=== PATIENT | female | born 1985 | race Caucasian/White ===

== ENCOUNTER 2018-01-06 17:02 | Emergency (ER) | payer OTHER ==
[2018-01-06] MEDS ORDERED: SODIUM CHLORIDE 0.9% 1,000 ML IV ONE (18:16)
--- NOTE | 2018-01-06 18:16 | ED ---
Female Urogenital HPI - General Source: patient, RN notes reviewed Mode of arrival: ambulatory Limitations: no limitations <Imelda Montoya - Last Filed: 01/06/18 20:16> <Vaughn Jones - Last Filed: 01/06/18 21:59> - General Chief complaint: Vaginal Bleeding Stated complaint: Female Time Seen by Provider: 01/06/18 17:58 - History of Present Illness Initial comments: This is a 32-year-old female who presents to the ED with CC of vaginal bleeding. Patient states that she has been having heavy bleeding for 12 days. She reports passing large clots, the size of quarters, for 3 days. She states she has bled through 21 tampons in the past 3 days. She states that she has never been sexually active so denies chance of STD or . She states that she sees Dr. Lyn, OB-[facility]MITTING OFFICER. She was taking supplemental estrogen and he recommended that she discontinue this. One week after discontinuing, she began to bleed. She last saw Dr. Lyn on December 22 and had her first pelvic exam. She states that it was normal. She reports a history of vaginal bleeding for 10 months last year but that it was not this heavy. She states that she has been feeling tired and lightheaded when she closes her eyes. Patient states that she did have an appointment for an ultrasound this evening at 6 PM but missed it to be evaluated here in the ED. She denies fevers or chills, chest pain or shortness of breath, abdominal pain, nausea or vomiting, dysuria or hematuria. (Imelda Montoya) - Related Data Previous Rx's Medication Instructions Recorded HYDROcodone/APAP 5-325MG [[place] 5] 1 each PO Q4HR PRN #10 tab 01/06/18 Allergies Allergy/AdvReac Type Severity Reaction Status Date / Time Sulfa (Sulfonamide Allergy Unknown Verified 01/06/18 18:31 Antibiotics) Childhood Review of Systems ROS Other: All systems not noted in ROS Statement are negative. <Imelda Montoya - Last Filed: 01/06/18 20:16> ROS Other: All systems not noted in ROS Statement are negative. <Vaughn Jones - Last Filed: 01/06/18 21:59> ROS Statement: Those systems with pertinent positive or pertinent negative responses have been documented in the HPI. Past Medical History Past Medical History: No Reported History Additional Past Medical History / Comment(s): FX LT WRIST 11/22/13 History of Any Multi-Drug Resistant Organisms: None Reported Past Surgical History: No Surgical Hx Reported Past Anesthesia/Blood Transfusion Reactions: No Reported Reaction Past Psychological History: No Psychological Hx Reported Smoking Status: Never smoker Past Alcohol Use History: Rare Past Drug Use History: None Reported <Imelda Montoya - Last Filed: 01/06/18 20:16> General Exam Limitations: no limitations External exam: Present: normal external exam. Absent: erythema, swelling, lesions, lacerations Speculum exam: Present: normal speculum exam, vaginal bleeding, other (unable to visualize cervix due to patient's body habitus) <Imelda Montoya - Last Filed: 01/06/18 20:16> <Vaughn Jones - Last Filed: 01/06/18 21:59> - General Exam Comments Initial Comments: General: Awake and alert, well-developed; in no apparent distress. Mother is at bedside. HEENT: Head atraumatic, normocephalic. Pupils are equal, round and reactive to light. Extraocular movements intact. Oropharynx moist without erythema or exudate. Neck: Supple. Normal ROM. Cardiovascular: Regular rate and rhythm. No murmurs, rubs or gallops. Chest symmetrical. Respiratory: Lungs clear to auscultation bilaterally. No wheezes, rales or rhonchi. Normal respiratory effort with no use of accessory muscles. Abdomen: Soft, non-tender, non-distended. No rigidity, rebound or guarding. Normal bowel sounds in all 4 quadrants. Musculoskeletal: Normal ROM, no tenderness bilateral upper and lower extremities. Ambulating normally. Skin: [place], warm and dry without rashes or lesions. Neurological: Alert and oriented x3. CN II-XII grossly intact. Speech is fluent and answers are appropriate. No focal neuro deficits. Psychiatric: Patient does appear nervous and anxious. (Imelda Montoya) Course <Imelda Montoya - Last Filed: 01/06/18 20:16> <Vaughn Jones - Last Filed: 01/06/18 21:59> Vital Signs 01/06/18 01/06/18 01/06/18 17:15 20:13 21:05 Temperature 98.8 F Pulse Rate 126 H 113 H 105 H Respiratory 16 18 18 Rate Blood Pressure 160/107 130/63 101/59 O2 Sat by Pulse 97 96 99 Oximetry 01/06/18 21:49 Temperature Pulse Rate 99 Respiratory 18 Rate Blood Pressure 113/59 O2 Sat by Pulse 96 Oximetry He was reassessed couple times she still has pain because of the ovarian cyst OF THE PELVIS WAS REVIEWED WELL, ADMISSION, OBSERVATION WAS OFFERED FOR PAIN MANAGEMENT SHE PREFERS TO GO HOME AND FOLLOW UP WITH THE DR. LYN OUTPATIENT (Vaughn Jones) - Reevaluation(s) Reevaluation #1: case discussed with attending physician, Dr. Jones who will take over the case at this time. 01/06/18 20:15 (Imelda Montoya) Medical Decision Making - Lab Data Result diagrams: 01/06/18 18:52 01/06/18 18:52 - Radiology Data Radiology results: report reviewed <Imelda Montoya - Last Filed: 01/06/18 20:16> - Lab Data Result diagrams: 01/06/18 18:52 01/06/18 18:52 <Vaughn Jones - Last Filed: 01/06/18 21:59> - Medical Decision Making This is a 32-year-old female who presents to the emergency department with chief complaint of vaginal bleeding. Patient states she has been having heavy vaginal bleeding for the past 12 days. She states that she's been passing clots for the past 3 days. speculum examination didn't reveal evidence for blood within the vagina, however cervix was not clearly visualized. Abdomen is soft and non-tender. CBC did reveal a normal hemoglobin at 12.0. Slightly elevated white cell count at 14.0 with a left shift at 9.8. CMP is unremarkable. UA did reveal moderate blood but no signs of infection.transvaginal ultrasound was obtained. This revealed a large right ovarian cyst measuring approximately 4.3 cm. No endometrial thickening of the uterus was identified. (Imelda Montoya) - Lab Data Lab Results 01/06/18 01/06/18 01/06/18 Range/Units 18:52 18:52 18:52 WBC 14.0 H (3.8-10.6) k/uL RBC 4.75 (3.80-5.40) m/uL Hgb 12.0 (11.4-16.0) gm/dL Hct 37.5 (34.0-46.0) % MCV 78.9 L (80.0-100.0) fL MCH 25.4 (25.0-35.0) pg MCHC 32.2 (31.0-37.0) g/dL RDW 14.9 (11.5-15.5) % Plt Count 376 (150-450) k/uL Neutrophils % 70 % Lymphocytes % 22 % Monocytes % 4 % Eosinophils % 1 % Basophils % 0 % Neutrophils # 9.8 H (1.3-7.7) k/uL Lymphocytes # 3.1 (1.0-4.8) k/uL Monocytes # 0.6 (0-1.0) k/uL Eosinophils # 0.2 (0-0.7) k/uL Basophils # 0.1 (0-0.2) k/uL Hypochromasia Slight Sodium 139 (137-145) mmol/L Potassium 4.3 (3.5-5.1) mmol/L Chloride 106 (98-107) mmol/L Carbon Dioxide 24 (22-30) mmol/L Anion Gap 9 mmol/L BUN 12 (7-17) mg/dL Creatinine 0.82 (0.52-1.04) mg/dL Est GFR (CKD-EPI)AfAm >90 (>60 ml/min/1.73 sqM) Est GFR (CKD-EPI)NonAf >90 (>60 ml/min/1.73 sqM) Glucose 103 H (74-99) mg/dL Calcium 9.2 (8.4-10.2) mg/dL Total Bilirubin 0.3 (0.2-1.3) mg/dL AST 41 H (14-36) U/L ALT 49 (9-52) U/L Alkaline Phosphatase 98 (38-126) U/L Total Protein 7.0 (6.3-8.2) g/dL Albumin 4.1 (3.5-5.0) g/dL Urine Color Urine Appearance (Clear) Urine pH (5.0-8.0) Ur Specific Martin (1.001-1.035) Urine Protein (Negative) Urine Glucose (UA) (Negative) Urine Ketones (Negative) Urine Blood (Negative) Urine Nitrite (Negative) Urine Bilirubin (Negative) Urine Urobilinogen (<2.0) mg/dL Ur Leukocyte Esterase (Negative) Urine RBC (0-5) /hpf Urine WBC (0-5) /hpf Ur Squamous Epith Cells (0-4) /hpf Urine HCG, Qual Not Detected (Not Detectd) 01/06/18 Range/Units 18:52 WBC (3.8-10.6) k/uL RBC (3.80-5.40) m/uL Hgb (11.4-16.0) gm/dL Hct (34.0-46.0) % MCV (80.0-100.0) fL MCH (25.0-35.0) pg MCHC (31.0-37.0) g/dL RDW (11.5-15.5) % Plt Count (150-450) k/uL Neutrophils % % Lymphocytes % % Monocytes % % Eosinophils % % Basophils % % Neutrophils # (1.3-7.7) k/uL Lymphocytes # (1.0-4.8) k/uL Monocytes # (0-1.0) k/uL Eosinophils # (0-0.7) k/uL Basophils # (0-0.2) k/uL Hypochromasia Sodium (137-145) mmol/L Potassium (3.5-5.1) mmol/L Chloride (98-107) mmol/L Carbon Dioxide (22-30) mmol/L Anion Gap mmol/L BUN (7-17) mg/dL Creatinine (0.52-1.04) mg/dL Est GFR (CKD-EPI)AfAm (>60 ml/min/1.73 sqM) Est GFR (CKD-EPI)NonAf (>60 ml/min/1.73 sqM) Glucose (74-99) mg/dL Calcium (8.4-10.2) mg/dL Total Bilirubin (0.2-1.3) mg/dL AST (14-36) U/L ALT (9-52) U/L Alkaline Phosphatase (38-126) U/L Total Protein (6.3-8.2) g/dL Albumin (3.5-5.0) g/dL Urine Color Yellow Urine Appearance Clear (Clear) Urine pH 6.0 (5.0-8.0) Ur Specific Martin 1.019 (1.001-1.035) Urine Protein Negative (Negative) Urine Glucose (UA) Negative (Negative) Urine Ketones Negative (Negative) Urine Blood Moderate H (Negative) Urine Nitrite Negative (Negative) Urine Bilirubin Negative (Negative) Urine Urobilinogen <2.0 (<2.0) mg/dL Ur Leukocyte Esterase Negative (Negative) Urine RBC 2 (0-5) /hpf Urine WBC <1 (0-5) /hpf Ur Squamous Epith Cells 1 (0-4) /hpf Urine HCG, Qual (Not Detectd) - Radiology Data Transvaginal ultrasound impression: Large simple appearing right ovarian cyst occupying the majority of the right ovary and therefore no ovarian tissue is identified. This measures up to 4.3 cm. Short-term follow-up is recommended to ensure resolution. 2. Left ovary is obscured by bowel gas. 2. Left ovary is obscured by bowel gas. 3. No endometrial thickening in this patient with abnormal vaginal bleeding. (Imelda Montoya) Disposition Is patient prescribed a controlled substance at d/c from ED?: No <Imelda Montoya - Last Filed: 01/06/18 20:16> Is patient prescribed a controlled substance at d/c from ED?: Yes If prescribed controlled substance>3 days was MAPS reviewed?: Prescribed <3 Days <Vaughn Jones - Last Filed: 01/06/18 21:59> Clinical Impression: Dysfunctional uterine bleeding Disposition: HOME SELF-CARE Condition: Good Instructions: Dysfunctional Uterine Bleeding (ED), Ovarian Cyst (ED) Additional Instructions: Please follow-up with Dr. Lyn within 1-2 days. Please follow up with primary care provider within 1-2 days. Return to emergency department if symptoms should worsen or any concerns arise. Prescriptions: HYDROcodone/APAP 5-325MG [[place] 5] 1 each PO Q4HR PRN #10 tab PRN Reason: Pain Referrals: None,Stated [Primary Care Provider] - 1-2 days
[2018-01-06 19:05] LABS: Appearance,Urine Clear (Clear); Bilirubin,Urine Negative (Negative); Blood,Urine Moderate (Negative); Color,Urine Yellow; Glucose,Urine (UA) Negative (Negative); Ketones,Urine Negative (Negative); Leukocyte Esterase,Urine Negative (Negative); Nitrite,Urine Negative (Negative); Protein,Urine Negative (Negative); RBC,Urine 2 /hpf (0-5); Specific Gravity,Urine 1.019 (1.001-1.035); Squamous Epithelial Cell,Urine 1 /hpf (0-4); Urobilinogen,Urine <2.0 mg/dL (<2.0); WBC,Urine <1 /hpf (0-5)
[2018-01-06 19:07] LABS: Basophils # (A) 0.1 k/uL (0-0.2); Basophils % (A) 0 %; Eosinophils # (A) 0.2 k/uL (0-0.7); Eosinophils % (A) 1 %; HCT 37.5 % (34.0-46.0); Hypochromasia Slight; Lymphocytes # (A) 3.1 k/uL (1.0-4.8); Lymphocytes % (A) 22 %; MCH 25.4 pg (25.0-35.0); MCHC 32.2 g/dL (31.0-37.0); MCV 78.9 fL (80.0-100.0); Mean Platelet Volume 6.7; Monocytes # (A) 0.6 k/uL (0-1.0); Monocytes % (A) 4 %; Neutrophils # (A) 9.8 k/uL (1.3-7.7); Neutrophils % (A) 70 %; Platelet Count 376 k/uL (150-450); RBC 4.75 m/uL (3.80-5.40); RDW 14.9 % (11.5-15.5)
[2018-01-06 19:22] LABS: ALT 49 U/L (9-52); AST 41 U/L (14-36); Albumin 4.1 g/dL (3.5-5.0); Alkaline Phosphatase 98 U/L (38-126); Anion Gap 9 mmol/L; Blood Urea Nitrogen 12 mg/dL (7-17); Calcium 9.2 mg/dL (8.4-10.2); Carbon Dioxide 24 mmol/L (22-30); Chloride 106 mmol/L (98-107); Glucose 103 mg/dL (74-99); Potassium 4.3 mmol/L (3.5-5.1); Sodium 139 mmol/L (137-145); Total Bilirubin 0.3 mg/dL (0.2-1.3)
--- NOTE | 2018-01-06 19:58 | US ---
EXAMINATION TYPE: US transvaginal DATE OF EXAM: 01/06/2018 COMPARISON: NONE CLINICAL HISTORY: vaginal bleeding. Abnormal bleeding. TECHNIQUE: Transvaginal (TV). EXAM MEASUREMENTS: Uterus: 6.0 x 3.0 x 3.6 cm Endometrial Stripe: 0.53 cm Right Ovary: 4.2 x 3.6 x 4.3 cm 1. Uterus: Anteverted wnl 2. Endometrium: wnl 3. Right Ovary: Cystic area seen measuring 4.2 x 3.6 x 4.3 cm no ovarian tissue visualized. Color fl ow not well seen due to cyst. 4. Left Ovary: Obscured by overlying bowel gas. 5. Bilateral Adnexa: wnl 6. Posterior cul-de-sac: wnl Right ovarian cyst seen measuring 4.2 x 3.6 x 4.6 cm. IMPRESSION: 1. Large simple appearing right ovarian cyst occupying the majority of the right ovary and therefore no ovarian tissue is identified. This measures up to 4.3 cm. Short-term follow-up is recommended to e nsure resolution. 2. Left ovary is obscured by bowel gas. 3. No endometrial thickening in this patient with abnormal vaginal bleeding.
[2018-01-06] MEDS ORDERED: LORazepam 1 MG TAB PO STA ×2 (20:14→20:27)
[2018-01-06] MEDS ORDERED: SODIUM CHLORIDE 0.9% 1,000 ML IV STA (20:14)
[2018-01-06 20:15] VITALS: RESP 18
[2018-01-06 21:49] VITALS: PULSE 99
[2018-01-06] MEDS ORDERED: KETOROLAC 30 MG/ML 1 ML VIAL IVP STA (21:59)
[2018-01-06 22:17] VITALS: BP 119/65; TEMP 98.4
== END 2018-01-06 22:39 | disposition home or self-care (01) ==
LOC: EC 17:02
DX: N93.8 Other specified abnormal uterine and vaginal bleeding (principal); D72.829 Elevated white blood cell count, unspecified; Z88.2 Allergy status to sulfonamides
CPT/HCPCS: 36415; 80053; 85025; 81001; 81025; 76830; 99284; 96374; 96361 ×3; J1885

== ENCOUNTER → 2018-01-07 | Outpatient (CLI) | payer OTHER ==
[2018-01-07 12:53] LABS: T4, Free (Free Thyroxine) 0.91 ng/dL (0.78-2.19)
== END | disposition home or self-care (01) ==
LOC: LABWHC1 11:37
PROVIDERS: ATTEND Obstetrics & Gynecology
DX: N92.1 Excessive and frequent menstruation with irregular cycle (principal)
CPT/HCPCS: 36415; 82670; 83001; 83002; 84439; 84443